=== PATIENT | female | born 1975 | race Caucasian/White ===

== ENCOUNTER 2018-09-30 10:17 | Emergency (ER) | payer BC ==
[2018-09-30] MEDS ORDERED: AMOXICILLIN 250 MG CAPSULE PO STA (10:57)
[2018-09-30] MEDS ORDERED: DEXAMETHASONE 10 MG/ML VIAL PO STA (10:57)
--- NOTE | 2018-09-30 11:00 | ED Physician Documentation ---
History of Present Illness - Stated complaint Stated Complaint: SORE THROAT/FEVER - Chief complaint Chief Complaint: Heent - Additonal information Additional information: hx from pt 43 f to ED fever sore throat X 2 days no cough no abd pain denies preg Review of Systems Constitutional: reports: Fever Throat: reports: Sore throat Respiratory: denies: Cough GI: denies: Abdominal Pain : denies: Now [facility] PAST MEDICAL HISTORY - Present Medications Home Medications: Ambulatory Orders Medication Instructions Recorded Confirmed Amoxicillin 500 mg PO BID #20 capsule 09/30/18 - Allergies Allergies/Adverse Reactions: Allergies Allergy/AdvReac Type Severity Reaction Status Date / Time azithromycin [From Zithromax] Allergy Nausea Verified 09/30/18 10:25 fish derived Allergy Anaphylaxis Verified 09/30/18 10:26 PD ED PE NORMAL - Vitals Vital signs reviewed: Yes - General General: Alert and oriented X 3 - HEENT HEENT: Moist mucous membranes. No: Pharynx benign (erythema and exudate no trisumus or SLIP LASTER) - Neck Neck: No: No adenopathy (anterior no posterior) - Cardiac Cardiac: RRR - Respiratory Respiratory: No respiratory distress, Clear bilaterally - Abdomen Abdomen: Non tender, No organomegaly - Derm Derm: Normal color - Neuro Neuro: Alert and oriented X 3 Results - Vitals Vitals: Vital Signs - 24 hr 09/30/18 10:23 Temperature 37.0 C Heart Rate 82 Respiratory 16 Rate Blood Pressure 121/80 O2 Saturation 98 Oxygen O2 Source Room air - Labs Labs: Laboratory Tests 09/30/18 10:25 Group A Strep Rapid POSITIVE H Departure - Departure Disposition: Home, Self Care Clinical Impression: Strep pharyngitis Condition: Good Instructions: ED Strep Pharyngitis Conf Prescriptions: Amoxicillin 500 mg PO BID #20 capsule
[2018-09-30] MEDS ORDERED: CHERRY SYRUP 10 ML UDC PO ONE (11:08)
[2018-09-30 11:13] VITALS: BP 109/68
== END 2018-09-30 11:13 | disposition home or self-care (01) ==
LOC: ED 10:17
DX: J02.0 Streptococcal pharyngitis (principal)
CPT/HCPCS: 87430; 99283; A9270